=== PATIENT | male | born 1930 ===

== ENCOUNTER 2018-07-04 09:38 | Inpatient (IN) ==
[2018-07-04] MEDS ORDERED: Morphine Inj 4 MG/ML Vial ONE (09:43)
[2018-07-04] MEDS ORDERED: ceFAZolin 2 GM Premix Inj 2 GM/50 ML PIGGYBACK IV.SIG ONE (09:43)
[2018-07-04] MEDS ORDERED: Diphtheria/Tetanus/Pertussis Vaccine Inj 0.5 ML Syringe IM ONE (09:43)
[2018-07-04 10:09] LABS: Baso % (Auto) 1.1 % (0.0-2.0); Eos # (Auto) 0.1 th/mm3 (0.0-0.4); Eos % (Auto) 2.4 % (0.0-4.0); Hematocrit 42.4 % (39.0-51.0); Hemoglobin 14.7 gm/dL (13.0-17.0); Lymph # (Auto) 1.2 th/mm3 (1.0-4.8); Lymph % (Auto) 29.3 % (9.0-44.0); Mean Corpuscular HGB Conc 34.8 % (32.0-36.0); Mean Corpuscular Hemoglobin 34.7 pg (27.0-34.0); Mean Platelet Volume 7.9 fL (7.0-11.0); Mono # (Auto) 0.3 th/mm3 (0.0-0.9); Mono % (Auto) 6.8 % (0.0-8.0); Neut # (Auto) 2.5 th/mm3 (1.8-7.7); Neut % (Auto) 60.4 % (16.0-70.0); Platelet Count 149 th/mm3 (150-450); Red Blood Count 4.24 mil/mm3 (4.50-5.90); Red Cell Distribution Width 15.4 % (11.6-17.2); White Blood Count 4.2 th/mm3 (4.0-11.0)
[2018-07-04] MEDS ORDERED: Lidocaine 1%/Epinephrine 1:100,000 Inj 50 ML Vial ONE (10:17)
[2018-07-04 10:18] LABS: Activated Partial Thrombo Time 21.1 sec (23.4-31.7); INR 1.1 Ratio; Prothrombin Time 11.6 sec (9.8-11.6)
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
[2018-07-04] MEDS ORDERED: Lidocaine PF 1% Inj 30 ML Vial ONE (10:40)
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
[2018-07-04] MEDS ORDERED: Pantoprazole Inj 40 MG Vial IV.PUSH SCH (11:00)
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
[2018-07-04] MEDS: HYDROmorphone PF Inj 0.5 MG/0.5 ML Syringe IV.PUSH PRN (12:14)
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
[2018-07-04] MEDS: Sod Chloride 0.9% Inj 1,000 ML IV.CONT SCH ×2 (12:43→20:10)
[2018-07-04] MEDS: Docusate Sodium 100 MG Capsule PO SCH ×2 (12:43→21:04)
--- NOTE | 2018-07-04 18:08 | ECG ---
Date Performed: 07/04/2018 Time Performed: 10:15:59 PTAGE: 89 years EKG: ATRIAL FIBRILLATION POSSIBLE LEFT VENTRICULAR HYPERTROPHY MODERATE T-WAVE ABNORMALITY ABNOR MAL ECG NO PREVIOUS TRACING DOCTOR: Jess Najera Interpretating Date/Time 07/04/2018 18:07:44
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
[2018-07-05] MEDS: HYDROmorphone PF Inj 0.5 MG/0.5 ML Syringe IV.PUSH PRN (02:05)
[2018-07-05] MEDS: Chlorhexidine Gluconate 2% 1 Pack (2 Cloths) TOPICAL SCH (03:44)
[2018-07-05] MEDS ORDERED: Chlorhexidine Gluconate 2% 1 Pack (2 Cloths) TOPICAL PRN (04:00)
[2018-07-05] MEDS ORDERED: Acetaminophen 325 MG Tablet PO PRN (06:26)
[2018-07-05] MEDS: Polyethylene Glycol 3350 17 GM Packet PO SCH (08:33)
[2018-07-05 08:34] LABS: Baso % (Auto) 0.7 % (0.0-2.0); Eos % (Auto) 0.4 % (0.0-4.0); Hematocrit 33.4 % (39.0-51.0); Hemoglobin 11.2 gm/dL (13.0-17.0); Lymph # (Auto) 0.8 th/mm3 (1.0-4.8); Lymph % (Auto) 15.5 % (9.0-44.0); Mean Corpuscular HGB Conc 33.6 % (32.0-36.0); Mean Corpuscular Volume 101.3 fL (80.0-100.0); Mean Platelet Volume 7.3 fL (7.0-11.0); Mono # (Auto) 0.4 th/mm3 (0.0-0.9); Mono % (Auto) 8.3 % (0.0-8.0); Neut % (Auto) 75.1 % (16.0-70.0); Platelet Count 117 th/mm3 (150-450); Red Blood Count 3.29 mil/mm3 (4.50-5.90); Red Cell Distribution Width 15.9 % (11.6-17.2); White Blood Count 5.4 th/mm3 (4.0-11.0)
[2018-07-05] MEDS: Docusate Sodium 100 MG Capsule PO SCH ×2 (08:34→20:28)
[2018-07-05] MEDS: Lidocaine 5% Patch T-DERMAL SCH (08:34)
[2018-07-05] MEDS: Sod Chloride 0.9% Inj 1,000 ML IV.CONT SCH ×2 (08:35→18:16)
[2018-07-05] MEDS: Sodium Chloride 0.9% 2 ML Flush BID IV.FLUSH SCH ×2 (08:36→20:32)
[2018-07-05 08:56] LABS: Calcium 8.5 mg/dL (8.5-10.1); Carbon Dioxide 21.2 meq/L (21.0-32.0); Potassium 4.4 meq/L (3.5-5.1)
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
[2018-07-05] MEDS: Famotidine 20 MG Tablet PO SCH ×2 (10:51→20:28)
[2018-07-05] MEDS: Levothyroxine 150 MCG Tablet PO SCH (10:51)
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
[2018-07-05] MEDS: Enoxaparin Inj 40 MG/0.4 ML Syringe SQ SCH (18:07)
--- NOTE | 2018-07-05 18:20 | US ---
EXAM DATE: 07/05/2018 6:05 PM EST AGE/SEX: 87 years / Male INDICATIONS: Syncope. CLINICAL DATA: This is the patient's initial encounter. Patient reports that signs and symptoms have been present for 1 day and indicates a pain score of 0/10. MEDICAL/SURGICAL HISTORY: Hypertension. Hypothyroidism. Atrial fibrillation. Hyperlipidemia. . Prostatectomy. COMPARISON: No prior exams available for comparison. VELOCITY PARAMETERS: ICA/CCA Ratio: Right 2.8 , Left 1.3 ICA: Right 197.6 cm/sec, Left 125.9 cm/sec CCA: Right 69.8 cm/sec, Left 98.4 cm/sec ECA: Right 93.5 cm/sec, Left 119.9 cm/sec Vertebral: Right 34.0 cm/sec antegrade, Left 68.5 cm/sec antegrade FINDINGS: Right Carotid: Moderate amount of calcified plaque is visualized. The waveforms are within normal li mits. Left Carotid: Moderate amount of calcified plaque is visualized. The waveforms are within normal jaimes its. Other: None. CONCLUSION: 1. 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 2. Left Internal Carotid Artery: Findings indicate <50% stenosis. Electronically signed by: Jordon Forte MD Board Certified Radiologist 07/05/2018 6:19 PM EST
[2018-07-06] MEDS: Levothyroxine 150 MCG Tablet PO SCH (05:38)
[2018-07-06] MEDS: Chlorhexidine Gluconate 2% 1 Pack (2 Cloths) TOPICAL SCH (05:39)
[2018-07-06] MEDS: Sod Chloride 0.9% Inj 1,000 ML IV.CONT SCH ×2 (05:40→13:38)
[2018-07-06 05:53] LABS: Baso % (Auto) 0.7 % (0.0-2.0); Eos # (Auto) 0.1 th/mm3 (0.0-0.4); Eos % (Auto) 1.7 % (0.0-4.0); Hematocrit 27.2 % (39.0-51.0); Hemoglobin 9.4 gm/dL (13.0-17.0); Lymph # (Auto) 0.9 th/mm3 (1.0-4.8); Lymph % (Auto) 17.3 % (9.0-44.0); Mean Corpuscular HGB Conc 34.5 % (32.0-36.0); Mean Corpuscular Hemoglobin 34.8 pg (27.0-34.0); Mean Corpuscular Volume 100.9 fL (80.0-100.0); Mono # (Auto) 0.5 th/mm3 (0.0-0.9); Mono % (Auto) 9.1 % (0.0-8.0); Neut # (Auto) 3.9 th/mm3 (1.8-7.7); Neut % (Auto) 71.2 % (16.0-70.0); Platelet Count 96 th/mm3 (150-450); Red Cell Distribution Width 16.1 % (11.6-17.2); White Blood Count 5.4 th/mm3 (4.0-11.0)
[2018-07-06 06:19] LABS: Calcium 7.9 mg/dL (8.5-10.1); Carbon Dioxide 24.1 meq/L (21.0-32.0); Potassium 4.4 meq/L (3.5-5.1)
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
[2018-07-06 08:23] LABS: Platelet Morphology Normal (Normal)
[2018-07-06] MEDS: Docusate Sodium 100 MG Capsule PO SCH ×2 (09:51→20:26)
[2018-07-06] MEDS: Famotidine 20 MG Tablet PO SCH ×2 (09:53→20:26)
[2018-07-06] MEDS: Enoxaparin Inj 40 MG/0.4 ML Syringe SQ SCH (09:53)
[2018-07-06] MEDS: Lidocaine 5% Patch T-DERMAL SCH (09:54)
[2018-07-06] MEDS: Polyethylene Glycol 3350 17 GM Packet PO SCH (09:54)
[2018-07-06] MEDS: Sodium Chloride 0.9% 2 ML Flush BID IV.FLUSH SCH ×2 (09:56→20:25)
--- NOTE | 2018-07-06 12:11 | P.DCO ---
- Physical Therapy Order: Evaluate and treat, Improve ambulation - Home Health Nursing Order: Nursing assessment with vital signs - Case Management Consult Case Management Consult-Home Health: Yes - Certification I have seen patient Chuy Najera on 07/06/18. My clinical findings support the need for the requested home health care services because: Limited mobility due to disease progression I certify that my clinical findings support that this patient is homebound because: Impaired cognitive ability/safety
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
[2018-07-07] MEDS: Sod Chloride 0.9% Inj 1,000 ML IV.CONT SCH ×3 (01:05→19:00)
[2018-07-07] MEDS: Chlorhexidine Gluconate 2% 1 Pack (2 Cloths) TOPICAL SCH (05:33)
[2018-07-07] MEDS: Levothyroxine 150 MCG Tablet PO SCH (05:33)
[2018-07-07] MEDS: Docusate Sodium 100 MG Capsule PO SCH ×2 (09:27→20:25)
[2018-07-07] MEDS: Famotidine 20 MG Tablet PO SCH ×2 (09:28→20:25)
[2018-07-07] MEDS: Polyethylene Glycol 3350 17 GM Packet PO SCH (09:28)
[2018-07-07] MEDS: Enoxaparin Inj 40 MG/0.4 ML Syringe SQ SCH (09:29)
[2018-07-07] MEDS: Lidocaine 5% Patch T-DERMAL SCH (09:30)
[2018-07-07] MEDS: Sodium Chloride 0.9% 2 ML Flush BID IV.FLUSH SCH ×2 (10:06→20:25)
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
[2018-07-08] MEDS: Levothyroxine 150 MCG Tablet PO SCH (05:29)
[2018-07-08] MEDS: Sod Chloride 0.9% Inj 1,000 ML IV.CONT SCH (05:29)
[2018-07-08] MEDS: Chlorhexidine Gluconate 2% 1 Pack (2 Cloths) TOPICAL SCH (07:32)
[2018-07-08] MEDS: Polyethylene Glycol 3350 17 GM Packet PO SCH (09:08)
[2018-07-08] MEDS: Docusate Sodium 100 MG Capsule PO SCH (09:09)
[2018-07-08] MEDS: Lidocaine 5% Patch T-DERMAL SCH (09:09)
[2018-07-08] MEDS: Enoxaparin Inj 40 MG/0.4 ML Syringe SQ SCH (09:09)
[2018-07-08] MEDS: Famotidine 20 MG Tablet PO SCH (09:09)
[2018-07-08] MEDS: Sodium Chloride 0.9% 2 ML Flush BID IV.FLUSH SCH (09:13)
[2018-07-08 12:45] VITALS: BP 169/85; PULSE 93; RESP 18; TEMP 98; O2SAT 98
--- NOTE | 2018-07-08 13:05 | P.PN ---
Subjective Interval history: TRAUMA PTD: 4 Physical Exam Vital signs: Vital Signs 07/07/18 17:05 07/07/18 17:11 07/07/18 20:00 Temperature 97.4 F L 97.5 F L Pulse Rate 98 H 88 Respiratory Rate 18 20 Blood Pressure 153/70 H 160/73 H Pulse Oximetry 96 97 98 07/07/18 20:55 07/08/18 00:00 07/08/18 08:00 Temperature 97.8 F 97.5 F L Pulse Rate 99 H 80 Respiratory Rate 20 20 17 Blood Pressure 162/79 H 163/82 H Pulse Oximetry 98 99 07/08/18 12:00 Temperature 98.0 F Pulse Rate 93 H Respiratory Rate 18 Blood Pressure 169/85 H Pulse Oximetry 98 Intake & Output 07/07/18 07/08/18 07/08/18 18:59 06:59 18:59 Weight 72.3 kg Other: # Voids 4 2 Date of Last Bowel Movement 07/04/18 07/07/18 07/04/18 # Bowel Movements 1 - Urinary Catheter Management Condom Cath placed during this visit: no Results - Labs CBC & Chem 7: 07/06/18 04:59 07/06/18 04:59 - Procedures .
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
== END 2018-07-08 15:05 | DRG 90 ==
LOC: NEPI 09:38 → NEDA 10:16 → N03 11:14 → N07 07-05 15:15
PROVIDERS: ADMIT Surgery; ATTEND Surgery
CPT/HCPCS: 12002; 12013; 70450; 70486; 71010; 71045; 71260; 72125; 72129; 72132; 72170; 73090; 73560; 74177; 80048; 80307; 82435; 82565; 82947; 84132; 84295; 84484; 84520; 85025; 85610; 85730; 86850; 86900; 86901; 90715; 93005; 93880; 94150; 97110; 97116; 97162; 99285; J0690; J1170; J1650; J2270; J2405; J7030; Q9967